=== PATIENT | female | born 1980 | race Caucasian/White ===

== ENCOUNTER → 2016-11-20 | Outpatient (CLI) | payer OTHER ==
--- NOTE | 2016-11-20 16:01 | KCIC ---
PQRS Compliance Statement: One or more of the following individualized dose reduction techniques were utilized for this examination: 1. Automated exposure control 2. Adjustment of the mA and/or kV according to patient size 3. Use of iterative reconstruction technique CT LOWER EXTREMITY WO RIGHT Clinical Indication: Surgery 03/31, evaluate for healing. Comparison: MR right foot January 17, 2016. TECHNIQUE: Helical CT imaging of the right foot is performed without IV contrast. Findings: There are 2 transverse screws spanning the medial and middle cuneiform. There is a screw fixating the second tarsal metatarsal joint. The head is about 3 mm proud of the dorsal cortex of the second metatarsal. No evidence of loosening is seen. There is an oblique cannulated cancellous screw in the medial cuneiform coursing laterally and distally along the plantar cortex of the second metatarsal and the tip abuts the medial portion of the proximal metaphysis of the third metatarsal. Lateral subluxation of the second metatarsal in relation to the medial cuneiform is stable or less than on prior study. No acute fracture. No focal soft tissue abnormality. IMPRESSION: Midfoot fusion hardware as described above. Electronically signed by: Panchito Dunne MD (11/20/2016 3:58 PM) [id number]
== END | disposition home or self-care (01) ==
LOC: KCIC CT 15:10
PROVIDERS: ATTEND Orthopaedic Surgery Foot and Ankle Surgery
DX: S92.901D Unspecified fracture of right foot, subsequent encounter for fracture with routine healing (principal); X58.XXXD Exposure to other specified factors, subsequent encounter
CPT/HCPCS: 73700